=== PATIENT | female | born 1965 | race Caucasian/White ===

== ENCOUNTER 2018-03-30 11:52 | Emergency (ER) | payer BC, OTHER ==
[2018-03-30] MEDS ORDERED: Ondansetron HCl/PF 4 MG/2 ML Vial ONE (12:31)
[2018-03-30 12:43] LABS: #Basophils 0.1 thou/uL (0.0-0.2); #Eosinphils 0.1 thou/uL (0.0-0.7); #Lymphocytes 1.4 thou/uL (1.20-3.40); #Monocytes 0.4 thou/uL (0.11-0.59); #Neutrophils 3.8 thou/uL (1.40-6.50); %Basophils 1.2 % (0.0-1.0); %Eosinophils 1.3 % (0.0-10.0); %Monocytes 6.8 % (0.0-10.0); %Neutrophils 66.6 % (42.0-75.0); Hemoglobin 14.2 g/dL (12.0-16.0); Mean Corpuscular HGB CONC 32.9 g/dL (32.0-36.0); Mean Corpuscular Volume 94.2 fL (78.0-98.0); Mean Platelet Volume 7.4 fL (7.4-10.4); Platelet Count 293 thou/uL (130-400); RBC Distribution Width 12.4 % (11.5-14.5); Red Blood Cell (RBC) Count 4.57 mill/uL (4.20-5.40); White Blood Cell (WBC) Count 5.8 thou/uL (4.8-10.8)
[2018-03-30 13:08] LABS: ALT (SGPT) 20 U/L (8-55); AST (SGOT) 20 U/L (5-34); Albumin 4.6 g/dL (3.5-5.0); Alkaline Phosphatase 81 U/L (40-150); Anion Gap 12 mmol/L (10-20); BUN (Urea Nitrogen) 11 mg/dL (9.8-20.1); Bilirubin, Total 0.7 mg/dL (0.2-1.2); Calc. Creatinine Clearance 0 mL/min (70-130); Calcium 10.6 mg/dL (7.8-10.44); Carbon Dioxide 27 mmol/L (22-29); Chloride 105 mmol/L (98-107); Estimated GFR-MDRD 56; Globulin 3.3 g/dL (2.4-3.5); Glucose 89 mg/dL (70-105); Potassium 4.3 mmol/L (3.5-5.1); Protein, Total 7.9 g/dL (6.0-8.3); Sodium 140 mmol/L (136-145)
== END 2018-03-30 13:47 | disposition home or self-care (01) ==
LOC: ERS 11:52
DX: E86.0 Dehydration (principal); I47.1 Supraventricular tachycardia; F32.9 Major depressive disorder, single episode, unspecified; I49.9 Cardiac arrhythmia, unspecified; Z79.899 Other long term (current) drug therapy
CPT/HCPCS: 80053; 85025; 96361; 96374; J2405

== ENCOUNTER 2018-04-12 10:36 | Observation (INO) | payer BC ==
[2018-04-12 12:45] LABS: Bilirubin Negative (Negative); Blood, Urine Negative (Negative); Clarity CLOUDY (Clear); Glucose, Urine (Dipstick) Negative (Negative); Leukocyte Trace (Negative); Nitrite Negative (Negative); Protein, Urine (Dipstick) Negative (Neg-Trace); Specific Gravity, Urine 1.013 (1.002-1.036); Urobilinogen 0.2 mg/dL (0.2-1.0)
[2018-04-12 12:47] LABS: Bacteria/HPF 2+ HPF (None Seen); WBC/HPF 21-50 HPF (0-3)
[2018-04-12 12:54] LABS: Pathc Cast-AUWi Flag 3.05 (0-2.49)
[2018-04-12 13:05] LABS: Hyaline Casts/LPF 0-3 HYALINE CAST LPF (0-3 Hyaline); Manual Microscopic Reviewed? No Path Casts Seen; RBC/HPF None Seen HPF (0-3)
[2018-04-12 13:18] LABS: #Eosinphils 0.1 thou/uL (0.0-0.7); #Lymphocytes 1.6 thou/uL (1.20-3.40); #Monocytes 0.5 thou/uL (0.11-0.59); %Basophils 0.2 % (0.0-1.0); %Eosinophils 0.8 % (0.0-10.0); %Lymphocytes 19.4 % (21.0-51.0); %Monocytes 5.6 % (0.0-10.0); Hemoglobin 13.7 g/dL (12.0-16.0); Mean Corpuscular HGB CONC 33.5 g/dL (32.0-36.0); Mean Corpuscular Hemoglobin 31.2 pg (27.0-31.0); Mean Platelet Volume 6.9 fL (7.4-10.4); Platelet Count 288 thou/uL (130-400)
[2018-04-12] MEDS ORDERED: cefTRIAXone\\ROCEPHIN 1 GM VIAL ONE (13:27)
[2018-04-12 13:50] LABS: ALT (SGPT) 40 U/L (8-55); AST (SGOT) 32 U/L (5-34); Albumin 4.5 g/dL (3.5-5.0); Alkaline Phosphatase 64 U/L (40-150); Anion Gap 13 mmol/L (10-20); BUN (Urea Nitrogen) 11 mg/dL (9.8-20.1); Bilirubin, Total 0.6 mg/dL (0.2-1.2); CK (CPK) 50 U/L (29-168); Calc. Creatinine Clearance 0 mL/min (70-130); Calcium 9.8 mg/dL (7.8-10.44); Carbon Dioxide 26 mmol/L (22-29); Chloride 105 mmol/L (98-107); Estimated GFR-MDRD 74; Glucose 84 mg/dL (70-105); Lipase 7 U/L (8-78); Protein, Total 7.5 g/dL (6.0-8.3); Sodium 140 mmol/L (136-145)
--- NOTE | 2018-04-12 13:59 | CT ---
CT OF THE BRAIN WITHOUT CONTRAST: 04/12/18 COMPARISON: None. HISTORY: Blacking out episodes and altered mental status. TECHNIQUE: Multiple contiguous axial images were obtained in a CT of the brain without contrast. FINDINGS: The brain is normal in morphology and attenuation without focal lesions or confluent areas of infarct ion. There is no evidence of hydrocephalus, intracranial hemorrhage, or extra-axial fluid collection. The calvarium and overlying soft tissues are unremarkable. The visualized paranasal sinuses and masto id air cells are well aerated. IMPRESSION: No evidence of acute intracranial abnormality. POS: [facility]
[2018-04-12 14:08] LABS: CKMB 0.7 ng/mL (0-6.6); Troponin I Less than 0.010 ng/mL (< 0.028)
[2018-04-12 15:49] VITALS: BMI 39.6
[2018-04-12] MEDS ORDERED: Ondansetron ODT 4 MG TAB PO PRN (17:38)
[2018-04-12] MEDS ORDERED: Acetaminophen 325 MG TAB PO PRN (17:38)
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
[2018-04-13 04:53] LABS: #Eosinphils 0.1 thou/uL (0.0-0.7); #Lymphocytes 1.7 thou/uL (1.20-3.40); #Monocytes 0.5 thou/uL (0.11-0.59); #Neutrophils 5.2 thou/uL (1.40-6.50); %Basophils 0.5 % (0.0-1.0); %Eosinophils 1.2 % (0.0-10.0); %Monocytes 7.1 % (0.0-10.0); %Neutrophils 69.2 % (42.0-75.0); Hemoglobin 13.1 g/dL (12.0-16.0); Mean Corpuscular HGB CONC 33.6 g/dL (32.0-36.0); Mean Corpuscular Hemoglobin 31.4 pg (27.0-31.0); Mean Corpuscular Volume 93.4 fL (78.0-98.0); Mean Platelet Volume 7.2 fL (7.4-10.4); Platelet Count 272 thou/uL (130-400); RBC Distribution Width 12.9 % (11.5-14.5); Red Blood Cell (RBC) Count 4.17 mill/uL (4.20-5.40); White Blood Cell (WBC) Count 7.6 thou/uL (4.8-10.8)
[2018-04-13 05:19] LABS: Anion Gap 12 mmol/L (10-20); BUN (Urea Nitrogen) 10 mg/dL (9.8-20.1); Calc. Creatinine Clearance 145 mL/min (70-130); Calcium 9.4 mg/dL (7.8-10.44); Carbon Dioxide 27 mmol/L (22-29); Chloride 106 mmol/L (98-107); Estimated GFR-MDRD 77; Glucose 95 mg/dL (70-105); Potassium 4.1 mmol/L (3.5-5.1); Sodium 141 mmol/L (136-145)
[2018-04-13] MEDS ORDERED: Enoxaparin Sodium 40 MG/0.4 ML SYRINGE SC SCH (09:00)
--- NOTE | 2018-04-13 09:48 | MRI ---
MRI JANEY WITHOUT CONTRAST: HISTORY: Altered mental status and syncope. FINDINGS: Correlation is made with the previous day's CT scan. No restricted diffusion is seen. No evidence of infarct, hemorrhage, midline shift, or abnormal extr aaxial fluid collections is noted. The ventricular size is normal and the basilar cisterns patent. The visualized paranasal sinuses are well aerated. There is a small amount of fluid in the right mas toid air cells. No tonsillar herniation is seen. There are a few foci of T2 prolongation in the per iventricular white matter consistent with mild chronic small-vessel ischemic disease. IMPRESSION: No evidence of acute intracranial process. POS: [facility]
[2018-04-13] MEDS ORDERED: cefTRIAXone\\ROCEPHIN 1 GM in Sodium Chloride 0.9% 100 ML IVPB SCH (13:00)
--- NOTE | 2018-04-13 14:20 | EEG ---
Referring Physician: KARL CONNOR EEG # [id number] TEST TYPE: ROUTINE PORTABLE INAPTIENT REPORT: AN EEG USING THE INTERNATIONAL TEN-TWENTY SYSTEM OF ELECTRODE PLACEMENT WAS PERFORMED. The waking background is a 10 hertz alpha frequency. The patient remained awake throughout the study. Hyperventilation and photic stimulation were unremarkable. No epileptiform features were seen. IMPRESSION: THIS IS A NORMAL AWAKE EEG. Food And Beverage Director: ANDREEA Tobacco Dipper: KOLTON.NAVIN GUSMAN
[2018-04-13 15:54] VITALS: TEMP 97.4
[2018-04-13 16:07] VITALS: BP 138/92
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
--- NOTE | 2018-04-26 16:58 | EKG ---
Test Reason : Blood Pressure : / mmHG Vent. Rate : 072 BPM Atrial Rate : 072 BPM P-R Int : 132 ms QRS Dur : 078 ms QT Int : 400 ms P-R-T Axes : 000 -23 -23 degrees QTc Int : 438 ms Normal sinus rhythm Low voltage QRS Borderline ECG Confirmed by MERCY OLMSTEAD, KARL ([id number]), deputy editor in chief TRAE GODWIN ([id number]) on 04/26/2018 4:58:02 PM Referred By: Confirmed By:KARL MADRID MD
== END 2018-04-13 18:10 | disposition home or self-care (01) ==
LOC: ERS 10:36 → 2SE 15:07
PROVIDERS: ADMIT Internal Medicine; ATTEND Internal Medicine
DX: R41.3 Other amnesia (principal); F41.9 Anxiety disorder, unspecified; E66.01 Morbid (severe) obesity due to excess calories; E78.5 Hyperlipidemia, unspecified; V89.2XXA Person injured in unspecified motor-vehicle accident, traffic, initial encounter; Z79.899 Other long term (current) drug therapy; Z68.39 Body mass index [BMI] 39.0-39.9, adult
CPT/HCPCS: 36415; 70450; 70551; 80048; 80053; 81003; 81015; 82140; 82550; 82553; 83690; 83880; 84443; 84484; 85025; 87086; 93005; 95816; 95819; 96361; 96365; 96372; G0378; J0696; J1650; J7050

== ENCOUNTER 2019-01-07 09:20 | Outpatient (CLI) | payer BC ==
--- NOTE | 2019-01-07 14:12 | RAD ---
EXAM: XR UGI Air Contrast PROVIDED CLINICAL HISTORY: Morbid obesity. Patient with history of prior hiatal hernia repair. This examination is being perform ed prior to gastric bypass surgery. COMPARISON: None Fluoroscopy: Fluoroscopy time-1.7 minutes, dose-38.653 Gy centimeter squared FINDINGS: The esophagus demonstrates normal esophageal peristalsis and demonstrates a normal appearance. No muc osal irregularity or narrowing is seen involving the esophagus. There is however narrowing seen in the region of the GE junction likely attributable to patient's history of prior fundoplication proced ure. The stomach was not completely distended but does demonstrate a normal appearance. The duodenal bulb, duodenum, and limited visualized most proximal small bowel demonstrate a normal appear ance. Surgical clips overlie the right upper quadrant. Degenerative changes are seen in the spine. IMPRESSION: 1. Postsurgical changes related to patient's history of prior fundoplication procedure. No significan t gastroesophageal reflux was appreciated during this exam.
== END 2019-01-07 09:21 | disposition home or self-care (01) ==
LOC: RAD 09:20
PROVIDERS: ATTEND Specialist
DX: E66.01 Morbid (severe) obesity due to excess calories (principal); Z98.890 Other specified postprocedural states
CPT/HCPCS: 74247

== ENCOUNTER 2019-01-13 13:13 | Outpatient (CLI) | payer OTHER, SELFPAY | END 2019-01-13 13:14 | disposition home or self-care (01) | LOC: DTY/OP 13:13 | PROVIDERS: ATTEND Specialist | DX: E66.01 Morbid (severe) obesity due to excess calories (principal) | CPT/HCPCS: 97802 ==

== ENCOUNTER 2019-02-15 13:07 | Outpatient (CLI) | payer BC ==
--- NOTE | 2019-02-15 16:44 | MMO ---
Bilateral MAMMO Bilat Screen [facility]. CLINICAL HISTORY: Patient is 53 years old and is seen for screening. The patient has no family history of breast cancer. The patient has no personal history of cancer. VIEWS: The views performed were: bilateral craniocaudal with tomosynthesis; bilateral mediolateral oblique with tomosynthesis; and right mediolateral oblique. FILMS COMPARED: The present examination has been compared to prior imaging studies performed at [facility] on 03/11/2012, 03/11/2013, 07/06/2014 and 04/25/2016. MAMMOGRAM FINDINGS: There are scattered fibroglandular densities. There are no suspicious masses, suspicious calcifications, or new areas of architectural distortion. IMPRESSION: THERE IS NO MAMMOGRAPHIC EVIDENCE OF MALIGNANCY. A ROUTINE FOLLOW-UP MAMMOGRAM IN 1 YEAR IS RECOMMENDED. THE RESULTS OF THIS EXAM WERE SENT TO THE PATIENT. ACR BI-RADS Category 1 - Negative MAMMOGRAPHY NOTE: 1. A negative mammogram report should not delay a biopsy if a dominant of clinically suspicious mass is present. 2. Approximately 10% to 15% of breast cancers are not detected by mammography. 3. Adenosis and dense breasts may obscure an underlying neoplasm. Reported by: SVETA HINES MD Electonically Signed: [id number]
== END 2019-02-15 13:08 | disposition home or self-care (01) ==
LOC: BICMAMMO 13:07
PROVIDERS: ATTEND Family Medicine
DX: Z12.31 Encounter for screening mammogram for malignant neoplasm of breast (principal)
CPT/HCPCS: 77063; 77067

== ENCOUNTER 2019-03-16 12:07 | Inpatient (IN) | payer BC ==
[2019-05-05] MEDS ORDERED: Ketorolac Tromethamine 30 MG/ML VIAL ONE ×2 (06:43→11:44)
[2019-05-05] MEDS ORDERED: cefOXitin 2 GM VIAL ONE (06:44)
[2019-05-05] MEDS ORDERED: Sodium Chloride 0.9% 100 ML ONE (06:44)
[2019-05-05] MEDS ORDERED: Bupivacaine 0.25% HCL 30 ML VIAL ONE (06:59)
[2019-05-05] MEDS ORDERED: Lidocaine 1% w/Epinephrine 1:100K 20 ML VIAL ONE (06:59)
[2019-05-05] MEDS ORDERED: Midazolam HCl 2 mg/2 ml Vial ONE (07:09)
[2019-05-05] MEDS ORDERED: Fentanyl 250 MCG/5 ML VIAL ONE (07:09)
[2019-05-05] MEDS ORDERED: Rocuronium Bromide 10 MG/ML (10ML VIAL) ONE (10:54)
[2019-05-05] MEDS ORDERED: Ondansetron PF 4 MG/2 ML Vial ONE ×2 (10:54→11:53)
[2019-05-05] MEDS ORDERED: PROPOFOL 200 MG/20 ML VIAL ONE (10:54)
[2019-05-05] MEDS ORDERED: Glycopyrrolate 0.2 MG/ML 5 ML SYRINGE ONE (10:54)
[2019-05-05] MEDS ORDERED: Ondansetron PF 4 MG/2 ML Vial IVP PRN (11:15)
[2019-05-05] MEDS ORDERED: Morphine 2 MG/ML SYRINGE SLOW IVP PRN (11:15)
[2019-05-05] MEDS ORDERED: diphenhydrAMINE 50 MG/ML VIAL IVP PRN (11:15)
[2019-05-05] MEDS ORDERED: Dextrose 5% in Water 1,000 ML IV PRN (11:15)
[2019-05-05] MEDS ORDERED: Dextrose 50 % In Water 50 ML SYRINGE IV PRN (11:15)
[2019-05-05] MEDS ORDERED: hydrALAZINE 20 MG/ML VIAL SLOW IVP PRN (11:15)
[2019-05-05] MEDS ORDERED: Promethazine HCl 25 MG/ML VIAL ONE (11:22)
[2019-05-05] MEDS ORDERED: Fentanyl 100 MCG/2 ML VIAL ONE ×2 (11:35→12:32)
[2019-05-05] MEDS ORDERED: Ondansetron HCl/PF 4 MG/2 ML Vial IVP PRN (11:42)
[2019-05-05] MEDS ORDERED: Promethazine HCl 25 MG/ML VIAL IM PRN (11:42)
[2019-05-05] MEDS ORDERED: Promethazine HCl 25 MG/ML VIAL SLOW IVP PRN (11:42)
[2019-05-05] MEDS ORDERED: Sodium Chloride 0.9% (PF) 10 ML VIAL FS PRN (12:01)
[2019-05-05] MEDS: Acetaminophen 1,000 MG in Premix Bag 1 BAG IVPB SCH ×3 (12:31→23:04)
[2019-05-05] MEDS: Ketorolac Tromethamine 30 MG/ML VIAL IVP SCH ×3 (12:31→23:17)
[2019-05-05 13:13] VITALS: BMI 36.3
[2019-05-05] MEDS: Promethazine HCl 25 MG/ML VIAL IM PRN ×2 (14:28→17:19)
[2019-05-05] MEDS: D5 1/2 NS w/20 mEq KCL 1,000 ML IV SCH ×2 (14:28→22:34)
[2019-05-05] MEDS: Morphine 4 MG/ML VIAL SLOW IVP PRN ×2 (16:17→18:38)
[2019-05-05] MEDS ORDERED: Enoxaparin Sodium 40 MG/0.4 ML SYRINGE SC SCH (21:00)
[2019-05-05] MEDS: Hydrocodone-Acetamin 15 ML UDCUP PO PRN (22:31)
[2019-05-06] MEDS: Hydrocodone-Acetamin 15 ML UDCUP PO PRN ×2 (04:05→09:26)
[2019-05-06] MEDS: D5 1/2 NS w/20 mEq KCL 1,000 ML IV SCH (04:06)
[2019-05-06 05:32] LABS: #Lymphocytes 0.9 thou/uL (1.20-3.40); #Neutrophils 10.1 thou/uL (1.40-6.50); %Basophils 0.1 % (0.0-1.0); %Lymphocytes 7.8 % (21.0-51.0); %Monocytes 8.5 % (0.0-10.0); %Neutrophils 83.5 % (42.0-75.0); Hemoglobin 11.7 g/dL (12.0-16.0); Mean Corpuscular HGB CONC 34.4 g/dL (32.0-36.0); Mean Corpuscular Volume 92.9 fL (78.0-98.0); Mean Platelet Volume 8.2 fL (7.4-10.4); Platelet Count 215 thou/uL (130-400); RBC Distribution Width 12.1 % (11.5-14.5); Red Blood Cell (RBC) Count 3.66 mill/uL (4.20-5.40); White Blood Cell (WBC) Count 12.1 thou/uL (4.8-10.8)
[2019-05-06] MEDS: Ketorolac Tromethamine 30 MG/ML VIAL IVP SCH (05:43)
[2019-05-06] MEDS: Acetaminophen 1,000 MG in Premix Bag 1 BAG IVPB SCH (05:44)
[2019-05-06 05:49] LABS: Anion Gap 9 mmol/L (10-20); BUN (Urea Nitrogen) 10 mg/dL (9.8-20.1); Calc. Creatinine Clearance 153 mL/min (70-130); Calcium 8.8 mg/dL (7.8-10.44); Carbon Dioxide 23 mmol/L (22-29); Chloride 110 mmol/L (98-107); Estimated GFR-MDRD Greater than 90; Glucose 128 mg/dL (70-105); Potassium 4.3 mmol/L (3.5-5.1); Sodium 138 mmol/L (136-145)
[2019-05-06 07:38] VITALS: BP 128/82; TEMP 98.4
[2019-05-06] MEDS ORDERED: Pantoprazole 40 MG VIAL IVP SCH (09:00)
--- NOTE | 2019-05-07 21:12 | OP ---
DATE OF PROCEDURE: 05/05/2019 PREOPERATIVE DIAGNOSES: Gastroesophageal reflux disease, history of Twila fundoplication, and morbid obesity. POSTOPERATIVE DIAGNOSES: Gastroesophageal reflux disease, history of Twila fundoplication, and morbid obesity. OPERATION PERFORMED: Takedown of previous Twila fundoplication (a lengthy meticulous procedure), partial gastrectomy (removal of the upper portion of the bypassed/retained stomach), and laparoscopic Terry-en-Y gastric bypass. ANESTHESIA: General endotracheal. COMBINING MACHINE OPERATOR: Cinthia Monterroso MD. INDICATIONS: Patient is a 54-year-old white female. She has a long history of obesity. Several years ago when she presented, she had a history of severe gastroesophageal reflux disease. At that time, I had recommended a laparoscopic gastric bypass. Unfortunately, this procedure was not covered by her insurance and as she was severely symptomatic, she elected to proceed with Twila fundoplication. Fortunately, she had an excellent result from this procedure and has been very happy with these results. Unfortunately, her morbid obesity persists and at this time, she had the ability and desire to proceed with a laparoscopic gastric bypass in order to treat both her reflux and her obesity. She understands the significant increased risk of this procedure. DESCRIPTION OF OPERATION: Informed consent was obtained, patient was taken to the operating room, where general endotracheal anesthesia was obtained, the patient in supine position. Abdomen was prepped with ChloraPrep and draped in a sterile fashion. Local anesthetic was infiltrated using a mixture of Marcaine and lidocaine with epinephrine. A 5 mm supraumbilical incision was created through which a Veress needle was passed in the peritoneal cavity. Pneumoperitoneum was established with carbon dioxide up to pressure of 15 mmHg. A 5 mm trocar port was established using the same incision and laparoscopic camera was passed this port. Under direct vision, four additional ports were placed including bilateral subcostal 5 mm ports, a left paramedian 15 mm port, and a right paramedian 12 mm port. Attention was turned first to the omentum. There were no adhesions to the anterior abdominal wall anywhere in the abdomen. The omentum was nonadherent within the lower abdomen. It was reflected into the upper abdomen and it was split in the midline up to the transverse colon using LigaSure. The ligament of Treitz was identified and about 40 cm distal to this, the small bowel was divided with a single firing of the white load of the [place] stapler. The distal segment was devascularized for a 5 cm length. I then tracked the small bowel 100 cm distally and at this location, I created a jejunojejunostomy between the biliary limb and the Terry limb using a single fire of the 60 mm white load stapler. The common enterotomy was closed with a transverse fire of the same stapler. The mesenteric defect was repaired with 2 interrupted [id number] sutures of 3-0 Vicryl. Patient was then placed into extreme reverse Trendelenburg position. The inferior edge of the liver was nonadherent and I was able to elevate this using a Janie retractor. There were adhesions between the superior aspect of the left lobe of the liver and the stomach as well as the hiatus. Using a combination of monopolar electrocautery, LigaSure dissection and division, and blunt dissection, I began a lengthy dissection in order to elevate the liver off the underlying stomach and hiatus. I meticulously dissected the left and right cecilia of the hiatus. I then turned my attention anteriorly, where I was able to identify the wrap and carefully divided the right from the left side of the anterior wrap. The Ethibond sutures used in the prior closure were identified. All of this was performed without any injury to esophagus or stomach. Meticulous hemostasis was maintained during the course of the dissection. I then was able to continue to dissect the wrap from the right side of the esophagus and stomach as well as away from the hiatus. I identified a retroesophageal window. I was able to pass a Colton drain through this. There was a more than adequate length of the esophagus intraabdominal and the hiatus was still nicely approximated to a normal caliber. Eventually, I was able to reduce the wrap from the right side underneath the esophagus to the left side. I then elevated the stomach and finished dissecting the posterior aspect until I had completely restored the normal gastric anatomy. The upper part of the fundus had of course been devascularized along the greater curvature and had been dissected extensively in order to take down the wrap. Although there was no definite injury and no bleeding, there was certainly potential for ischemia due to the lack of blood supply to the fundus. I therefore decided to remove the entire fundus of the stomach down to the prior level of vascular mobilization. I turned my attention to the lesser curve of the stomach where 5 cm from the gastroesophageal junction, I dissected into the lesser sac. I then fired a transverse firing of the blue load of the [place] stapler. A gastrotomy was created inferior to the staple line through which the anvil of the 25 mm EEA stapler was advanced into the upper pouch and utilizing the 5 mm band passer, the EEA stapler was eventually brought out through the anterior aspect of the stomach just superior to the staple line. The gastrotomy was closed with two firings of the blue load of the stapler. The gastric pouch construction was completed with two firings of the stapler up to and just adjacent to the angle of His. I then performed a partial gastrectomy with two firings of the blue load of the [place] stapler in order to remove the ischemic fundus and superior aspect of the retained portion of the stomach. This was removed through the 15-mm port site. The 25 mm EEA stapler was then advanced through the 15-mm port site to the abdominal cavity. An enterotomy was created in the devascularized segment of the Terry limb and the stapler was advanced up to the viable segment of the small bowel, where the spike was advanced through the antimesenteric side of the small bowel. This spike was secured to the anvil in the gastric pouch. The two segments were approximated and anastomosed by firing the stapler. The donuts were inspected and found to be intact. The devascularized segment was removed along with the enterotomy with a single firing of the [place] stapler. The gastrojejunostomy staple line was then buttressed with 3 interrupted sutures of 3-0 Vicryl. An orogastric tube was then advanced through the gastric pouch and through the anastomosis under vision. An air insufflation test was performed with the anastomosis under water with no evidence of air leak and excellent insufflation. The fascial defect at the 15-mm port site was closed with 0 Vicryl suture using a GraNee needle. A single suture was placed at the 12 mm port site also using the GraNee needle. The Janie retractor was removed. All ports and instruments were removed under direct vision. Pneumoperitoneum was carefully evacuated. 0.25% Marcaine with epinephrine was infiltrated at each port site. Skin edges approximated with 4-0 Monocryl subcuticular suture. Dermabond was placed externally. There were no complications. Blood loss was minimal, estimated at less than 50 mL. Patient tolerated the procedure well, was taken to recovery room in stable condition. Of note, this operation took substantially longer than a typical gastric bypass because of the fundoplication takedown and this took an estimated 2.5 hours to complete. Job ID: [id number]
== END 2019-05-06 10:05 | disposition home or self-care (01) | DRG 621 ==
LOC: SURG A 05-05 06:14
PROVIDERS: ADMIT Specialist; ATTEND Specialist
PROC: 0D164ZA Bypass Stomach to Jejunum, Percutaneous Endoscopic Approach (ICD-10-PCS; principal; 2019-05-05)
PROC: 0DB64ZZ Excision of Stomach, Percutaneous Endoscopic Approach (ICD-10-PCS; 2019-05-05)
PROC: 0DQ44ZZ Repair Esophagogastric Junction, Percutaneous Endoscopic Approach (ICD-10-PCS; 2019-05-05)
DX: E66.01 Morbid (severe) obesity due to excess calories (principal); J30.2 Other seasonal allergic rhinitis; F32.9 Major depressive disorder, single episode, unspecified; K21.9 Gastro-esophageal reflux disease without esophagitis; I10 Essential (primary) hypertension; Z68.36 Body mass index [BMI] 36.0-36.9, adult; Z79.899 Other long term (current) drug therapy
CPT/HCPCS: 36415; 80048; 85025; 88307; 88312; 94760; C9113; J0131; J0694; J1200; J1650; J1885; J2250; J2270; J2405; J2550; J2704; J3010; J3490; S0020

== ENCOUNTER 2019-04-22 07:11 | Outpatient (CLI) | payer BC ==
[2019-04-22 09:22] VITALS: BMI 36.3
[2019-04-22 10:21] LABS: #Eosinphils 0.1 thou/uL (0.0-0.7); #Lymphocytes 1.4 thou/uL (1.20-3.40); #Monocytes 0.5 thou/uL (0.11-0.59); #Neutrophils 4.2 thou/uL (1.40-6.50); %Basophils 0.5 % (0.0-1.0); %Eosinophils 1.3 % (0.0-10.0); %Lymphocytes 22.4 % (21.0-51.0); %Monocytes 7.8 % (0.0-10.0); %Neutrophils 68.1 % (42.0-75.0); Hemoglobin 13.8 g/dL (12.0-16.0); Mean Corpuscular HGB CONC 33.2 g/dL (32.0-36.0); Mean Corpuscular Hemoglobin 31.7 pg (27.0-31.0); Mean Corpuscular Volume 95.7 fL (78.0-98.0); Mean Platelet Volume 7.9 fL (7.4-10.4); Platelet Count 230 thou/uL (130-400); RBC Distribution Width 12.3 % (11.5-14.5); Red Blood Cell (RBC) Count 4.34 mill/uL (4.20-5.40); White Blood Cell (WBC) Count 6.2 thou/uL (4.8-10.8)
[2019-04-22 10:27] LABS: Hemoglobin A1c 5.1 % (4.0-6.0)
[2019-04-22 10:44] LABS: Anion Gap 13 mmol/L (10-20); BUN (Urea Nitrogen) 19 mg/dL (9.8-20.1); Calc. Creatinine Clearance 119 mL/min (70-130); Calcium 9.8 mg/dL (7.8-10.44); Carbon Dioxide 24 mmol/L (22-29); Chloride 110 mmol/L (98-107); Estimated GFR-MDRD 69; Glucose 86 mg/dL (70-105); Potassium 4.5 mmol/L (3.5-5.1); Sodium 142 mmol/L (136-145)
== END 2019-04-22 07:12 | disposition home or self-care (01) ==
LOC: LABBT 07:11
PROVIDERS: ATTEND Specialist
DX: Z01.812 Encounter for preprocedural laboratory examination (principal); E66.01 Morbid (severe) obesity due to excess calories
CPT/HCPCS: 80048; 83036; 85025

== ENCOUNTER 2019-07-27 15:44 | Emergency (ER) | payer BC ==
[2019-07-27 16:24] LABS: #Eosinphils 0.1 thou/uL (0.0-0.7); #Lymphocytes 2.1 thou/uL (1.20-3.40); #Monocytes 0.6 thou/uL (0.11-0.59); #Neutrophils 4.5 thou/uL (1.40-6.50); %Basophils 0.6 % (0.0-1.0); %Eosinophils 1.4 % (0.0-10.0); %Lymphocytes 28.9 % (21.0-51.0); %Monocytes 7.6 % (0.0-10.0); %Neutrophils 61.6 % (42.0-75.0); Hemoglobin 13.7 g/dL (12.0-16.0); Mean Corpuscular HGB CONC 34.3 g/dL (32.0-36.0); Mean Corpuscular Hemoglobin 32.4 pg (27.0-31.0); Mean Corpuscular Volume 94.4 fL (78.0-98.0); Mean Platelet Volume 8.4 fL (7.4-10.4); Platelet Count 270 thou/uL (130-400); RBC Distribution Width 12.6 % (11.5-14.5); Red Blood Cell (RBC) Count 4.25 mill/uL (4.20-5.40); White Blood Cell (WBC) Count 7.3 thou/uL (4.8-10.8)
[2019-07-27 16:46] LABS: Lactic Acid 0.9 mmol/L (0.5-2.2)
[2019-07-27 16:52] LABS: ALT (SGPT) 12 U/L (8-55); AST (SGOT) 15 U/L (5-34); Albumin 4.3 g/dL (3.5-5.0); Alkaline Phosphatase 102 U/L (40-110); Anion Gap 12 mmol/L (10-20); BUN (Urea Nitrogen) 15 mg/dL (9.8-20.1); Bilirubin, Total 0.5 mg/dL (0.2-1.2); Calc. Creatinine Clearance 0 mL/min (70-130); Calcium 9.4 mg/dL (7.8-10.44); Carbon Dioxide 28 mmol/L (22-29); Chloride 105 mmol/L (98-107); Estimated GFR-MDRD 87; Globulin 2.8 g/dL (2.4-3.5); Glucose 80 mg/dL (70-105); Lipase 11 U/L (8-78); Potassium 4.1 mmol/L (3.5-5.1); Protein, Total 7.1 g/dL (6.0-8.3); Sodium 141 mmol/L (136-145)
[2019-07-27 17:11] LABS: Bilirubin Negative (Negative); Blood, Urine Negative (Negative); Clarity Clear (Clear); Glucose, Urine (Dipstick) Normal (Negative); Leukocyte Negative Leu/uL (Negative); Nitrite Negative (Negative); Protein, Urine (Dipstick) Negative (Neg-Trace); Urobilinogen Normal mg/dL (Less than 2)
== END 2019-07-27 20:35 | disposition home or self-care (01) ==
LOC: ERS 15:44
DX: E86.0 Dehydration (principal); I47.1 Supraventricular tachycardia; F32.9 Major depressive disorder, single episode, unspecified; Z79.899 Other long term (current) drug therapy
CPT/HCPCS: 36415; 80053; 81003; 82150; 83605; 83690; 85025; 96361; 96365; J3411

== ENCOUNTER 2019-08-16 08:38 | Day surgery (SDC) | payer BC ==
[2019-08-16] MEDS ORDERED: Sodium Chloride 0.9% 200 ML ONE (09:22)
[2019-08-16] MEDS ORDERED: Lactated Ringer's 1,000 ML IV SCH (09:30)
[2019-08-16] MEDS ORDERED: Sodium Chloride 0.9% 1,000 ML IV SCH (09:30)
[2019-08-16 12:35] VITALS: BP 143/73; TEMP 97.7
== END 2019-08-16 12:36 | disposition home or self-care (01) ==
LOC: ONC/OP 08:38
PROVIDERS: ATTEND Specialist
DX: E86.0 Dehydration (principal)
CPT/HCPCS: 96360; 96361; J3490

== ENCOUNTER 2019-10-29 10:21 | Emergency (ER) | payer BC, OTHER ==
[2019-10-30 16:40] LABS: SARS-CoV-2 MS2 Positive; SARS-CoV-2 N Gene Negative; SARS-CoV-2 S Gene Negative; SARS-CoV-2 orf1ab Negative
== END 2019-10-29 10:47 | disposition home or self-care (01) ==
LOC: ERS 10:21
DX: J02.9 Acute pharyngitis, unspecified (principal); Z20.828 Contact with and (suspected) exposure to other viral communicable diseases; I47.1 Supraventricular tachycardia; F32.9 Major depressive disorder, single episode, unspecified; E28.2 Polycystic ovarian syndrome
CPT/HCPCS: 87635; 99283; U0003

== ENCOUNTER 2019-11-02 11:02 | Inpatient (IN) | payer BC, OTHER ==
[~2019-11-02 11:02] MED LIST: Iopamidol 370 76% 50 ML VIAL FS ONE; Iopamidol-370 76% 500 ML 1 ML ONE
[2019-11-02 12:05] LABS: #Eosinphils 0.1 thou/uL (0.0-0.7); #Lymphocytes 1.7 thou/uL (1.20-3.40); #Monocytes 0.9 thou/uL (0.11-0.59); #Neutrophils 7.2 thou/uL (1.40-6.50); %Basophils 0.5 % (0.0-1.0); %Eosinophils 0.7 % (0.0-10.0); %Lymphocytes 17.3 % (21.0-51.0); %Monocytes 9.3 % (0.0-10.0); %Neutrophils 72.2 % (42.0-75.0); Hemoglobin 12.9 g/dL (12.0-16.0); Mean Corpuscular HGB CONC 33.7 g/dL (32.0-36.0); Mean Corpuscular Volume 94.9 fL (78.0-98.0); Mean Platelet Volume 7.6 fL (7.4-10.4); Platelet Count 290 thou/uL (130-400); RBC Distribution Width 11.8 % (11.5-14.5); Red Blood Cell (RBC) Count 4.04 mill/uL (4.20-5.40)
[2019-11-02 12:09] LABS: Bilirubin Negative (Negative); Blood, Urine Negative (Negative); Clarity Turbid (Clear); Glucose, Urine (Dipstick) Normal (Negative); Leukocyte Negative Leu/uL (Negative); Nitrite Negative (Negative); Protein, Urine (Dipstick) 20 mg/dL (Neg-Trace); Urobilinogen Normal mg/dL (Less than 2)
[2019-11-02] MEDS ORDERED: Thiamine HCl 100 MG, Admixture Fee 1 EACH in Sodium Chloride 0.9% 50 ML IVPB SCH (12:30)
[2019-11-02 12:32] LABS: ALT (SGPT) 7 U/L (8-55); AST (SGOT) 13 U/L (5-34); Albumin 3.9 g/dL (3.5-5.0); Alkaline Phosphatase 102 U/L (40-110); Anion Gap 14 mmol/L (10-20); BUN (Urea Nitrogen) 10 mg/dL (9.8-20.1); Bilirubin, Total 0.6 mg/dL (0.2-1.2); Calc. Creatinine Clearance 0 mL/min (70-130); Calcium 9.5 mg/dL (7.8-10.44); Carbon Dioxide 29 mmol/L (22-29); Chloride 101 mmol/L (98-107); Estimated GFR-MDRD 85; Globulin 3.4 g/dL (2.4-3.5); Glucose 92 mg/dL (70-105); Potassium 3.8 mmol/L (3.5-5.1); Protein, Total 7.3 g/dL (6.0-8.3); Sodium 140 mmol/L (136-145)
[2019-11-02 12:33] LABS: Lipase Less than 4 U/L (8-78)
[2019-11-02] MEDS ORDERED: Ondansetron PF 4 MG/2 ML Vial ONE ×2 (13:52→16:20)
[2019-11-02] MEDS ORDERED: Morphine 4 MG/ML VIAL ONE (13:52)
--- NOTE | 2019-11-02 15:13 | CT ---
CT ABDOMEN AND PELVIS WITH IV CONTRAST 11/02/2019 CLINICAL INFORMATION: Abdominal pain. Patient has history of prior cholecystectomy, hernia repair, and history of gastric b ypass procedure. COMPARISON: None. Technique: Multiple contiguous axial CT images are obtained through the abdomen and pelvis with IV contrast. Cor onal reformatted images are provided. FINDINGS: Lower Chest: Lung bases are clear. Vessels: Abdominal aorta is normal in caliber without evidence of an aortic dissection. Abdomen: Portal vein:Patent Gallbladder: Surgically absent Liver: Mild intrahepatic biliary duct dilatation likely related to reservoir effect. Few very tiny morales bcentimeter too small to characterize hypodense lesions are seen in the left hepatic lobe. Spleen: within normal limits. Pancreas: within normal limits. Adrenals: within normal limits. Kidneys: Low-density area inferior pole left kidney which is thought to be related to a parapelvic re nal cyst as opposed to dilatation of the calyx and renal pelvis. The kidneys otherwise demonstrate a normal CT appearance. Bowel: Postoperative changes of the stomach findings likely to gastric bypass procedure. Appendix: There is cecal apical thickening, and the visualized portions of the appendix are dilated w ith appendicolith noted in place. The appendix at the level of the appendicolith measures 2.4 cm, and there is adjacent inflammatory stranding extending into the right paracolic gutter and into the r ight pelvis. Tiny amount free fluid is seen in the pelvis. Peritoneum: No ascites or free air; no fluid collection. Mesentery and Retroperitoneum: No enlarged mesenteric or retroperitoneal lymph nodes. Abdominal Wall: within normal limits. Pelvis: Reproductive Organs: No pelvic masses. Pelvis within normal limits. Bladder: within normal limits. Bones: Degenerative changes are seen in the spine. IMPRESSION: 1. Acute appendicitis with prominent cecal apical thickening as well as prominent adjacent inflammato ry changes. No fluid collection is seen to suggest an abscess 2. Tiny amount of free fluid in the pelvis. 3. Postoperative changes abdomen as described above. 4. Above findings discussed with Dr. Sandy in the emergency department on 11/02/2019 at 1509 hours.
[2019-11-02] MEDS ORDERED: Piperacillin/Tazobactam 3.375 GM VIAL ONE (15:36)
[2019-11-02] MEDS ORDERED: Rocuronium Bromide 10 MG/ML (10ML VIAL) ONE (16:20)
[2019-11-02] MEDS ORDERED: Dexamethasone 20 MG/5 ML VIAL ONE (16:20)
[2019-11-02] MEDS ORDERED: Ketorolac Tromethamine 30 MG/ML VIAL ONE (16:20)
[2019-11-02] MEDS ORDERED: PROPOFOL 200 MG/20 ML VIAL ONE (16:20)
[2019-11-02] MEDS ORDERED: Lidocaine 1% PF 5 ML VIAL ONE (16:20)
[2019-11-02] MEDS ORDERED: Succinylcholine Chloride 20 MG/ML 10 ml SYRINGE FS ONE (16:20)
[2019-11-02] MEDS ORDERED: Glycopyrrolate 0.2 MG/ML 5 ML SYRINGE ONE (16:20)
[2019-11-02] MEDS ORDERED: Bupivacaine 0.25% HCL 30 ML VIAL ONE (17:26)
[2019-11-02] MEDS ORDERED: Lidocaine 1% w/Epinephrine 1:100K 20 ML VIAL ONE (17:26)
[2019-11-02] MEDS ORDERED: Fentanyl 100 MCG/2 ML VIAL ONE ×3 (17:38→20:18)
[2019-11-02] MEDS ORDERED: Lidocaine 2% Jelly 5 ML TUBE ONE (17:38)
[2019-11-02] MEDS ORDERED: Promethazine HCl 25 MG/ML VIAL IM PRN ×2 (19:33→20:51)
[2019-11-02] MEDS ORDERED: Ondansetron HCl/PF 4 MG/2 ML Vial IVP PRN (19:33)
[2019-11-02] MEDS ORDERED: Promethazine HCl 25 MG/ML VIAL SLOW IVP PRN (19:33)
[2019-11-02] MEDS ORDERED: hydrALAZINE 20 MG/ML VIAL SLOW IVP PRN (20:51)
[2019-11-02] MEDS ORDERED: Dextrose 50% Abboject 50 ML SYRINGE SLOW IVP PRN (20:51)
[2019-11-02] MEDS ORDERED: Dextrose 5% in Water 1,000 ML IV PRN (20:51)
[2019-11-02] MEDS: Famotidine/PF 20 mg/2ml Vial SLOW IVP SCH (21:01)
[2019-11-02] MEDS: Ondansetron PF 4 MG/2 ML Vial IVP PRN (21:01)
[2019-11-02] MEDS: Famotidine 20 MG TAB PO SCH (21:02)
[2019-11-02] MEDS: D5 1/2 NS w/20 mEq KCL 1,000 ML IV SCH (21:02)
[2019-11-02 21:43] VITALS: BMI 30.5
[2019-11-02] MEDS: Piperacillin/Tazobactam 3.375 GM in Sodium Chloride 0.9% 100 ML IVPB SCH (23:35)
[2019-11-02] MEDS: Ketorolac Tromethamine 30 MG/ML VIAL IVP SCH (23:35)
[2019-11-03] MEDS: HYDROcodone/Acetaminophen 10/325 mg Tablet PO PRN ×3 (01:32→13:49)
[2019-11-03] MEDS: Morphine 2 MG/ML SYRINGE SLOW IVP PRN ×3 (03:49→16:08)
[2019-11-03] MEDS: Piperacillin/Tazobactam 3.375 GM in Sodium Chloride 0.9% 100 ML IVPB SCH ×4 (05:44→23:53)
[2019-11-03] MEDS: Ketorolac Tromethamine 30 MG/ML VIAL IVP SCH ×4 (05:44→23:53)
[2019-11-03] MEDS: D5 1/2 NS w/20 mEq KCL 1,000 ML IV SCH ×2 (05:45→18:31)
[2019-11-03 06:08] LABS: #Lymphocytes 0.7 thou/uL (1.20-3.40); #Monocytes 0.9 thou/uL (0.11-0.59); #Neutrophils 10.3 thou/uL (1.40-6.50); %Lymphocytes 6.2 % (21.0-51.0); %Monocytes 7.9 % (0.0-10.0); %Neutrophils 85.9 % (42.0-75.0); Hemoglobin 11.8 g/dL (12.0-16.0); Mean Corpuscular Hemoglobin 31.3 pg (27.0-31.0); Mean Platelet Volume 7.7 fL (7.4-10.4); Platelet Count 260 thou/uL (130-400); RBC Distribution Width 11.7 % (11.5-14.5); Red Blood Cell (RBC) Count 3.77 mill/uL (4.20-5.40); White Blood Cell (WBC) Count 11.9 thou/uL (4.8-10.8)
[2019-11-03 06:31] LABS: Anion Gap 12 mmol/L (10-20); BUN (Urea Nitrogen) 8 mg/dL (9.8-20.1); Calc. Creatinine Clearance 127 mL/min (70-130); Calcium 8.8 mg/dL (7.8-10.44); Carbon Dioxide 25 mmol/L (22-29); Chloride 103 mmol/L (98-107); Estimated GFR-MDRD 90; Glucose 171 mg/dL (70-105); Potassium 4.1 mmol/L (3.5-5.1); Sodium 136 mmol/L (136-145)
--- NOTE | 2019-11-03 07:17 | OP ---
DATE OF PROCEDURE: 11/02/2019 PREOPERATIVE DIAGNOSIS: Acute appendicitis. POSTOPERATIVE DIAGNOSIS: Acute appendicitis with perforation and abscess formation. PROCEDURE PERFORMED: Laparoscopic drainage of appendiceal abscess with extensive washout and placement of intraabdominal drain. ANESTHESIA: General endotracheal. INDICATIONS: The patient is a 54-year-old white female. She presented with a 1-week history of abdominal pain. CT scan showed findings consistent with acute appendicitis. She was taken to the operating room at this time for treatment. DESCRIPTION OF OPERATION: Informed consent was obtained. The patient was taken to the operating room, where general endotracheal anesthesia was obtained, placed in supine position. The abdomen was prepped with ChloraPrep and draped in sterile fashion. Local anesthetic was infiltrated and a 5 mm infraumbilical incision was created through which a Veress needle was passed into the peritoneal cavity. Pneumoperitoneum was established using carbon dioxide up to pressure of 15 mmHg. A 5 mm trocar port was passed through the same vision. Camera was passed through this port and under direct vision, I placed 2 additional ports using a 5 mm left lower quadrant port and a 12 mm suprapubic port. Attention was turned to the right lower quadrant. There was a large indurated mass at the cecum. The appendix was not visualized. I began to bluntly mobilize the cecum away from the lateral abdominal wall. As I did so, I eventually entered the abscess cavity. It was a large volume of claudio purulence. This was aspirated and submitted for culture. I was able to mobilize the distal small bowel and the cecum away from the lateral abdominal wall and the pelvic structures. It was possible that I could see the appendix, but it was still indurated, inflamed, that I could not adequately determine anatomy and could not grasp anything before beginning to dissect this from the cecum. I therefore did not feel this was amenable to resection. I did identify an obvious fecalith, which was grasped and removed intact. The former abscess cavity and residual appendix were copiously irrigated. All irrigant was aspirated. A #19 round fluted drain was obtained and brought out through the left lower quadrant port site and placed over across the area of the abscess and the residual appendix. The drain was secured to the skin exit site with 3-0 nylon suture. All ports and instruments were removed under direct vision. Pneumoperitoneum was carefully evacuated. 0.25% Marcaine with epinephrine was infiltrated at each port site. Skin edges were approximated with 4-0 Monocryl subcuticular suture and Dermabond placed externally. There were no complications. The patient tolerated the procedure well and was taken to recovery room in good condition. Job ID: [id number]
[2019-11-03] MEDS: Famotidine 20 MG TAB PO SCH ×2 (08:44→20:24)
[2019-11-03] MEDS: Enoxaparin Sodium 40 MG/0.4 ML SYRINGE SC SCH (08:44)
[2019-11-03] MEDS: Famotidine/PF 20 mg/2ml Vial SLOW IVP SCH ×2 (08:51→20:25)
[2019-11-03] MEDS: Ondansetron PF 4 MG/2 ML Vial IVP PRN (15:12)
[2019-11-04] MEDS ORDERED: Sodium Chloride 0.9% 1,000 ML IV SCH ×2 (01:00→02:30)
[2019-11-04 02:32] LABS: #Lymphocytes 0.9 thou/uL (1.20-3.40); #Monocytes 0.5 thou/uL (0.11-0.59); #Neutrophils 7.9 thou/uL (1.40-6.50); %Basophils 0.3 % (0.0-1.0); %Eosinophils 0.2 % (0.0-10.0); %Lymphocytes 9.6 % (21.0-51.0); %Monocytes 5.7 % (0.0-10.0); %Neutrophils 84.2 % (42.0-75.0); Hemoglobin 10.6 g/dL (12.0-16.0); Mean Corpuscular HGB CONC 32.1 g/dL (32.0-36.0); Mean Corpuscular Hemoglobin 31.2 pg (27.0-31.0); Mean Corpuscular Volume 97.1 fL (78.0-98.0); Mean Platelet Volume 7.2 fL (7.4-10.4); Platelet Count 231 thou/uL (130-400); RBC Distribution Width 11.9 % (11.5-14.5); Red Blood Cell (RBC) Count 3.39 mill/uL (4.20-5.40); White Blood Cell (WBC) Count 9.4 thou/uL (4.8-10.8)
[2019-11-04 02:50] LABS: Anion Gap 8 mmol/L (10-20); BUN (Urea Nitrogen) 6 mg/dL (9.8-20.1); Calc. Creatinine Clearance 121 mL/min (70-130); Calcium 7.9 mg/dL (7.8-10.44); Carbon Dioxide 27 mmol/L (22-29); Chloride 107 mmol/L (98-107); Estimated GFR-MDRD 85; Glucose 129 mg/dL (70-105); Potassium 4.2 mmol/L (3.5-5.1); Sodium 138 mmol/L (136-145)
[2019-11-04] MEDS: D5 1/2 NS w/20 mEq KCL 1,000 ML IV SCH ×3 (03:25→17:36)
[2019-11-04] MEDS: Piperacillin/Tazobactam 3.375 GM in Sodium Chloride 0.9% 100 ML IVPB SCH (05:10)
[2019-11-04] MEDS: Ketorolac Tromethamine 30 MG/ML VIAL IVP SCH ×3 (05:11→17:36)
--- NOTE | 2019-11-04 07:35 | CT ---
PRELIMINARY REPORT/[facility]/EMERGENCY AFTER HOURS PROCEDURE EXAM: CTA Chest with Intravenous Contrast CT Abdomen and Pelvis with Intravenous Contrast. CLINICAL HISTORY: LOW BP TACHYCARDIA TECHNIQUE: Axial CTA images of the chest, and CT images of the abdomen and pelvis with intravenous contrast. MIP reconstructed images were created and reviewed through the chest. CONTRAST: With; ISOVUE 370,100mL COMPARISON: CT - CT APPENDIX PROTOCOL - 11/02/2019 02:51 PM CDT FINDINGS: CHEST: Aorta: No acute finding. No abdominal aortic aneurysm. No dissection. Pulmonary arteries: The pulmonary arteries are adequately opacified. No pulmonary embolism. Lungs: Moderate bilateral dependent atelectasis. Pleural spaces: No pleural effusion. No pneumothorax. Heart and mediastinum: No cardiomegaly. No significant pericardial effusion. ABDOMEN: Liver: Unremarkable. No mass. Gallbladder and bile ducts: No calcified stone. No ductal dilation. Pancreas: Unremarkable. No ductal dilation. Spleen: Unremarkable. Adrenals: No mass. Kidneys and ureters: The kidneys enhance symmetrically. No hydronephrosis. No solid mass. Stomach and bowel: Gastric staple lines. Postoperative changes adjacent to cecum. No formed fluid collection to suggest drainable abscess. Appendix: The patient has undergone recent appendectomy, and there is an intraperitoneal drain. PELVIS: Bladder: Unremarkable. Reproductive: Unremarkable as visualized. Peritoneum: Anterior abdominal wall soft tissue gas and small volume pneumoperitoneum as well as a small volume o f free fluid are consistent with recent operative intervention. Bones: No acute osseous abnormality. IMPRESSION: 1. There is no intraluminal filling defect suspicious for PE. 2. Moderate bilateral dependent atelectasis. 3. Anterior abdominal wall soft tissue gas and small volume pneumoperitoneum as well as a small volum e of free fluid are consistent with recent operative intervention. 4. Postoperative changes adjacent to cecum. No formed fluid collection to suggest drainable abscess. ELECTRONICALLY SIGNED BY: Raul Duong MD November 04, 2019 3:12:25 AM CDT This report is intended for review by the ordering physician only, in accordance of law. If you recei ve this report in error, please call [facility] at [phone]. FINAL REPORT EXAM: CT ABDOMEN AND PELVIS HISTORY: Acute appendicitis. Abdominal pain. Recent appendectomy. COMPARISON: None. Procedure: Multiple contiguous axial images were obtained and a CT of the abdomen and pelvis with IV contrast. C oronal reformats were performed. FINDINGS: Lower Chest: Bibasilar atelectasis Vessels: Normal caliber aorta Heart: Normal heart size Abdomen: Portal vein:Patent Gallbladder: Surgically absent Liver: within normal limits. Pancreas: within normal limits. Spleen: within normal limits. Adrenals: within normal limits. Kidneys: Symmetric enhancement. No obstructive uropathy. Peritoneum: Expected postoperative free air. There is small amount of fluid in the right hemiabdomen. There is an external drainage catheter in the right lower quadrant. Small focus of possible extraluminal air with associated phlegmonous change in the right lower quadrant. No definite abscess. Bowel: Limited evaluation due to the lack of oral contrast administration. No evidence of bowel obstr uction. Ileocecal junction is unremarkable. Normal caliber appendix. Scattered fecal material in a nondistended, nondilated colon. Mesentery and Retroperitoneum: No enlarged mesenteric or retroperitoneal lymph nodes. Abdominal Wall: Subcutaneous emphysema compatible with recent appendectomy Pelvis: Reproductive Organs: Reproductive organs are unremarkable. Pelvis: No mass, lymphadenopathy, free air or free fluid. Bladder: within normal limits. Bones: within normal limits. IMPRESSION: 1. This report is in agreement with initial report by [facility]. 2. Findings compatible with recent appendectomy. 3. No evidence of a drainable abscess. Small focus of phlegmon and extraluminal air is noted. Transcribed Date/Time: 11/04/2019 7:43 AM
--- NOTE | 2019-11-04 07:36 | CT ---
PRELIMINARY REPORT/[facility]/EMERGENCY AFTER HOURS PROCEDURE EXAM: CTA Chest with Intravenous Contrast CT Abdomen and Pelvis with Intravenous Contrast. CLINICAL HISTORY: LOW BP TACHYCARDIA TECHNIQUE: Axial CTA images of the chest, and CT images of the abdomen and pelvis with intravenous contrast. MIP reconstructed images were created and reviewed through the chest. CONTRAST: With; ISOVUE 370,100mL COMPARISON: CT - CT APPENDIX PROTOCOL - 11/02/2019 02:51 PM CDT FINDINGS: CHEST: Aorta: No acute finding. No abdominal aortic aneurysm. No dissection. Pulmonary arteries: The pulmonary arteries are adequately opacified. No pulmonary embolism. Lungs: Moderate bilateral dependent atelectasis. Pleural spaces: No pleural effusion. No pneumothorax. Heart and mediastinum: No cardiomegaly. No significant pericardial effusion. ABDOMEN: Liver: Unremarkable. No mass. Gallbladder and bile ducts: No calcified stone. No ductal dilation. Pancreas: Unremarkable. No ductal dilation. Spleen: Unremarkable. Adrenals: No mass. Kidneys and ureters: The kidneys enhance symmetrically. No hydronephrosis. No solid mass. Stomach and bowel: Gastric staple lines. Postoperative changes adjacent to cecum. No formed fluid collection to suggest drainable abscess. Appendix: The patient has undergone recent appendectomy, and there is an intraperitoneal drain. PELVIS: Bladder: Unremarkable. Reproductive: Unremarkable as visualized. Peritoneum: Anterior abdominal wall soft tissue gas and small volume pneumoperitoneum as well as a small volume o f free fluid are consistent with recent operative intervention. Bones: No acute osseous abnormality. IMPRESSION: 1. There is no intraluminal filling defect suspicious for PE. 2. Moderate bilateral dependent atelectasis. 3. Anterior abdominal wall soft tissue gas and small volume pneumoperitoneum as well as a small volum e of free fluid are consistent with recent operative intervention. 4. Postoperative changes adjacent to cecum. No formed fluid collection to suggest drainable abscess. ELECTRONICALLY SIGNED BY: Raul Duong MD November 04, 2019 3:12:25 AM CDT This report is intended for review by the ordering physician only, in accordance of law. If you recei ve this report in error, please call [facility] at [phone]. FINAL REPORT Exam: CT angiogram of the chest HISTORY: Recent surgery for appendectomy. Hypotension. Tachycardia. COMPARISON: None TECHNIQUE: CT angiogram of the chest is performed in the axial plane. Three-dimensional reformatted i mages are submitted for interpretation FINDINGS: Mediastinum: No mass, lymphadenopathy or hematoma. HEART: Normal size. No significant pericardial fluid. Aorta: No aneurysm or dissection Upper solid abdominal viscera: No abnormality enhancement. Trachea and central bronchi: Patent Pleural spaces: No effusion Lung parenchyma: Parenchymal changes in both lower lobes may represent scar, atelectasis or aspiratio n. Pneumothorax: None Osseous structures: No lytic or blastic lesions Pulmonary arteries: Adequate contrast opacification pulmonary arterial system to the level of segment al arteries. No filling defect to suggest pulmonary embolism IMPRESSION: 1. This report is in agreement with initial report by [facility]. 2. No evidence of pulmonary artery aneurysm to level of segmental arteries. 3. Lung parenchymal changes as detailed above. Transcribed Date/Time: 11/04/2019 7:41 AM
[2019-11-04] MEDS: Famotidine/PF 20 mg/2ml Vial SLOW IVP SCH ×2 (08:10→19:56)
[2019-11-04] MEDS: Famotidine 20 MG TAB PO SCH ×2 (08:13→19:56)
[2019-11-04] MEDS ORDERED: Lactated Ringer's 500 ML IV SCH (09:30)
[2019-11-04] MEDS: Morphine 2 MG/ML SYRINGE SLOW IVP PRN ×2 (09:42→15:15)
[2019-11-04] MEDS: Enoxaparin Sodium 40 MG/0.4 ML SYRINGE SC SCH (09:44)
[2019-11-04] MEDS ORDERED: Iopamidol 370 76% 100 ML VIAL ONE (09:53)
[2019-11-04] MEDS: MEROPENEM 1 GM/50 ML 1 GM in Premix Bag 1 BAG IVPB SCH ×2 (10:27→17:35)
--- NOTE | 2019-11-04 17:24 | PRG ---
DATE OF SERVICE: 11/04/2019 SUBJECTIVE: Ms. Johnson is postoperative day #2 following laparoscopic drainage of appendiceal abscess with extensive washout and placement of intraabdominal drain. Yesterday, when I saw her, she appeared to be doing very well. She was tolerating clear liquids, but I did not advance her. She had almost no bowel sounds. She was afebrile with normal vital signs. During the night, she developed fairly sudden onset of problems at about 11 p.m. At that time, she became tachycardic with a heart rate of 130, whereas her heart rate had been 97 previously. At that same time, her blood pressure dropped down to 84/51. She was managed with an EKG, which showed sinus tachycardia, 2 L of fluid boluses, and a CT angio of the chest as well as abdomen and pelvis. Her tachycardia resolved with the IV fluid administration, and during the day, today she has been back in the 80s to 90s. Her blood pressure has slowly stabilized and she is running about 100/60 currently. She has been afebrile throughout. She has also felt stable. She has not been short of breath or had any chest pain. She has complained of appropriate abdominal pain. She has neither been nauseated nor has she vomited. Today, she has passed flatus and had a bowel movement. She has been voiding. She has been ambulating in the halls. PHYSICAL EXAMINATION: VITAL SIGNS: As above. Her current vital signs are temperature 98.5, pulse 99, and blood pressure 102/58. LUNGS: Clear to auscultation anteriorly. ABDOMEN: Substantially softer than it was previously. Bowel sounds are definitely present and fairly normoactive. Laparoscopic incisions are healing nicely. Drain output is serosanguineous. There is certainly no enteric material. There is minimal purulence visible. LABORATORY DATA: Her CBC revealed white blood cell count is 9.4, hemoglobin is 10.6, and platelet count is 231. These labs were obtained at 2:30 in the morning when she still appeared to be unstable. Her basic metabolic panel shows normal electrolytes. Her CO2 is normal at 27. Her renal function is normal. Her creatinine is 0.7. Her sugars have been well controlled. ASSESSMENT: The patient had an episode of tachycardia and hypotension. It is difficult to explain. She seemed to have responded to IV fluid administration, but she never had an elevated BUN or creatinine beforehand to suggest significant dehydration or hypovolemia. I empirically changed antibiotics today from Zosyn to meropenem. Her cultures are still pending and revealed only a gram-negative carlos enrique that is growing, that is presumed to be Escherichia coli. I have advanced her to bariatric full liquids today. I have encouraged her to continue to ambulate. I will continue her IV fluids for now. I will obtain repeat laboratory studies and examination tomorrow. Depending upon her course, I would hope that she would be able to be discharged with oral antibiotics and probably leaving her drain in place for discharge. Job ID: [id number]
[2019-11-04] MEDS: HYDROcodone/Acetaminophen 10/325 mg Tablet PO PRN (22:47)
[2019-11-05] MEDS: Ketorolac Tromethamine 30 MG/ML VIAL IVP SCH ×3 (00:20→11:01)
[2019-11-05] MEDS: D5 1/2 NS w/20 mEq KCL 1,000 ML IV SCH (02:22)
[2019-11-05] MEDS: MEROPENEM 1 GM/50 ML 1 GM in Premix Bag 1 BAG IVPB SCH ×2 (02:22→08:59)
[2019-11-05 05:44] LABS: #Eosinphils 0.2 thou/uL (0.0-0.7); #Lymphocytes 1.3 thou/uL (1.20-3.40); #Monocytes 0.6 thou/uL (0.11-0.59); #Neutrophils 6.2 thou/uL (1.40-6.50); %Basophils 0.4 % (0.0-1.0); %Eosinophils 2.2 % (0.0-10.0); %Lymphocytes 15.6 % (21.0-51.0); %Monocytes 7.2 % (0.0-10.0); %Neutrophils 74.5 % (42.0-75.0); Hemoglobin 10.1 g/dL (12.0-16.0); Mean Corpuscular HGB CONC 31.9 g/dL (32.0-36.0); Mean Corpuscular Hemoglobin 31.1 pg (27.0-31.0); Mean Corpuscular Volume 97.6 fL (78.0-98.0); Mean Platelet Volume 7.2 fL (7.4-10.4); Platelet Count 243 thou/uL (130-400); RBC Distribution Width 11.8 % (11.5-14.5); Red Blood Cell (RBC) Count 3.24 mill/uL (4.20-5.40); White Blood Cell (WBC) Count 8.4 thou/uL (4.8-10.8)
[2019-11-05 05:59] LABS: Anion Gap 8 mmol/L (10-20); BUN (Urea Nitrogen) 4 mg/dL (9.8-20.1); Calc. Creatinine Clearance 149 mL/min (70-130); Carbon Dioxide 27 mmol/L (22-29); Chloride 109 mmol/L (98-107); Estimated GFR-MDRD Greater than 90; Glucose 95 mg/dL (70-105); Sodium 140 mmol/L (136-145)
[2019-11-05] MEDS: Famotidine 20 MG TAB PO SCH (08:25)
[2019-11-05] MEDS: Enoxaparin Sodium 40 MG/0.4 ML SYRINGE SC SCH (08:25)
[2019-11-05] MEDS: Famotidine/PF 20 mg/2ml Vial SLOW IVP SCH (08:29)
[2019-11-05 08:30] VITALS: BP 98/65; TEMP 98.2
[2019-11-05] MEDS: HYDROcodone/Acetaminophen 10/325 mg Tablet PO PRN (10:56)
--- NOTE | 2019-11-05 12:08 | DIS ---
DATE OF ADMISSION: 11/02/2019 DATE OF DISCHARGE: 11/05/2019 ADMISSION DIAGNOSIS: Acute appendicitis. DISCHARGE DIAGNOSES: Severe perforated appendicitis with appendiceal abscess. PROCEDURES PERFORMED: Laparoscopic drainage of appendiceal abscess with abdominal washout and placement of drain. ADMISSION HISTORY: The patient is a 54-year-old female, well known to myself from two prior abdominal surgeries. Most recently about 6 months ago, she underwent a laparoscopic gastric bypass. She has done well in regard to that. She presented at this time with a 1-week history of persistent and progressive right lower quadrant abdominal pain. CT scan showed evidence of appendicitis. HOSPITAL COURSE: She was taken the operating room, where laparoscopic appendectomy was planned. She had such severe inflammation that appendectomy was not possible. I did encounter an abscess and drained a substantial volume of purulent material. Cultures were obtained of this that have revealed Klebsiella and suspected anaerobic organisms that are not . She initially did well after surgery. However, on the evening of postoperative day #1, she developed hypotension and tachycardia. She underwent extensive treatment and evaluation. She had a CT angio of her chest as well as a CT abdomen and pelvis. These revealed no significant abnormality. Her laboratory studies were essentially stable as well. She was treated with large volume IV fluid resuscitation and received 2 L during that night. Her blood pressure stabilized and her tachycardia resolved. She has continued to have relatively low blood pressure with most recent blood pressure being 98/65. Her heart rate was 83. She has felt well from a systemic standpoint. She notes persistent abdominal pain both in the left and right lower abdomen. She still has a drain in, which continues to drain serosanguineous fluid. There is no bilious or enteric material. Her drain put out 45 mL yesterday. She has had bowel movements. She is felt to be stable for discharge home today. Today is postoperative day #3. In light of her cultures, I will discharge her home on Cipro and Flagyl. She does not believe she requires anything stronger than [id number] pain medication. She will be given instructions for drain care and I would like to see her back in four days with plans for removing her drain at that time. Job ID: [id number]
--- NOTE | 2019-11-08 06:19 | PQF ---
MICHAEL BOWMAN MICHAEL W MD [id number] [facility]G A- 3332 [id number] CLINICAL DOCUMENTATION CLARIFICATION FORM: POST DISCHARGE Addendum to original discharge summary date: ____ Late entry note date: __ DATE:11/08/2019 ATTN: Donny Olson Please exercise your independent, professional judgment in responding to the clarification form. Clinical indicators are provided on the bottom of this form for your review Please check appropriate box(s): [ ] Postoperative Shock due to E.Coli [x ] Postoperative Shock Unspecified [ ] Shock Unspecified [ ] Other diagnosis [ ] Unable to determine In addition, please specify: Present on Admission (POA): [ ] Yes [ x ] No [ ] Unable to determine For continuity of documentation, please document condition throughout progress notes and discharge summary. Thank You. CLINICAL INDICATORS - SIGNS / SYMPTOMS / LABS Bacterial culture for Appendix abscess 11/01 Positive with Klebsiella Pneumoniea, Gram negative Mike Vital signs 11/01 BP 130/85, Pulse 85, Resp 19, Temp 97.4 Vital signs 11/03 BP 102/58, Pulse 99, Temp 98.5 PN p1 11/03 Pt had an episode of tachycardia and hypotension, it is difficult to explain.' PN p1 11/03 Her culture are still pending and revealed only a gram-negative mike that is growing that is presumed to be E coli Discharge summary 11/04 On evening of postoperative day 1, she develop hypotension and tachycardia. Discharge summary 11/04 She felt well from a systemic standpoint RISK FACTORS Operative report 11/01 54 year-old- Female Operative report 11/01 Acute appendicitis with perforation and abscess formation Operative report 11/01 S/p drainage of appendiceal abscess TREATMENTS: AUG 17 IV Zosyn 3.375gm AUG 17 IV Bolus Normal Saline 2L (This form is maintained as a part of the permanent medical record) 2014 [employer] All Rights Reserved Chiquis MTDChance
--- NOTE | 2019-11-08 06:20 | PQF ---
MICHAEL BOWMAN MICHAEL W MD [id number] [facility] A- 3332 [id number] CLINICAL DOCUMENTATION CLARIFICATION FORM: POST DISCHARGE Addendum to original discharge summary date: ____ Late entry note date: __ DATE: ATTN: Donny Olson Please exercise your independent, professional judgment in responding to the clarification form. Clinical indicators are provided on the bottom of this form for your review Please check appropriate box(es): [ x ] Sepsis due to Acute appendicitis with perforation and abscess formation [ ] Septic Shock [ ] Localized infection without sepsis [ ] Other diagnosis [ ] Unable to determine In addition, please specify: Present on Admission (POA): [ ] Yes [ ] No [ ] Unable to determine For continuity of documentation, please document condition throughout progress notes and discharge summary. Thank You. CLINICAL INDICATORS - SIGNS / SYMPTOMS / LABS Laboratory 11/01 WBC 10.0, Plat count 290, Neutrophils 72.2 Laboratory 11/02 WBC 11.9, Plat count 260, Neutrophils 85.9 Bacterial culture for Appendix abscess 11/01 Positive with Klebsiella Pneumonia , Gram negative Mike Vital signs 11/01 BP 130/85, Pulse 85, Resp 19, Temp 97.4 Vital signs 11/03 BP 102/58, Pulse 99, Temp 98.5 ED notes p2 11/01 SIRS Scoring: Pt did meet at least 1 criteria Operative report p1 11/01 Presented with a 1-week history of abdominal pain PN p1 11/03 Pt had an episode of tachycardia and hypotension, it is difficult to explain. PN p1 11/03 Her culture are still pending and revealed on ly a gram-negative mike that is growing that is presumed to be E coli Discharge summary p1 11/04 On evening of postoperative day 1, she develop hypotension and tachycardia. Discharge summary p1 11/04 She felt well from a systemic standpoint RISK FACTORS Operative report p1 11/01 54 year-old- Female Operative report p1 11/01 Acute appendicitis with perforation and abscess formation TREATMENTS: Operative report p1 11/01 S/p drainage of appendiceal abscess AUG 17 IV Zosyn 3.375gm AUG 17 IV Bolus Normal Saline 2L (This form is maintained as a part of the permanent medical record) 2014 [employer]. All Rights Reserved [email or web address]
--- NOTE | 2019-11-08 20:04 | PQF ---
MICHAEL BOWMAN MICHAEL W MD [id number] [facility] A- 3332 [id number] CLINICAL DOCUMENTATION CLARIFICATION FORM: POST DISCHARGE Addendum to original discharge summary date: ____ Late entry note date: __ DATE: ATTN: Donny Olson Please exercise your independent, professional judgment in responding to the clarification form. Clinical indicators are provided on the bottom of this form for your review Diagnosis: Sepsis Present on Admission (POA): [ ] Yes [x ] No [ ] Unable to determine Coding guidelines require hospitals to identify whether a diagnosis was present on admission (POA) or not. To accurately assign the appropriate POA indicator, this information must be clearly documented within the medical record. CLINICAL INDICATORS - SIGNS / SYMPTOMS / LABS Laboratory 11/01 WBC 10.0, Plat count 290, Neutrophils 72.2 Laboratory 11/02 WBC 11.9, Plat count 260, Neutrophils 85.9 Bacterial culture for Appendix abscess 11/01 Positive with Klebsiella Pneumoniea, Gram negative Mike Vital signs 11/01 BP 130/85, Pulse 85, Resp 19, Temp 97.4 Vital signs 11/03 BP 102/58, Pulse 99, Temp 98.5 ED notes p2 11/01 SIRS Scoring: Pt did meet at least 1 criteria Operative report p1 11/01 Presented with a 1-week history of abdominal pain PN p1 11/03 Pt had an episode of tachycardia and hypotension, it is difficult to explain. PN p1 11/03 Her culture are still pending and revealed on ly a gram-negative mike that is growing that is presumed to be E coli Discharge summary p1 11/04 On evening of postoperative day 1, she develop hypotension and tachycardia. Discharge summary p1 11/04 She felt well from a systemic standpoint Physician documentation p1 11/07 Sepsis due to Acute Appendicitis with perforation and abscess formation RISK FACTORS Operative report p1 11/01 54 year-old- Female Operative report p1 11/01 Acute appendicitis with perforation and abscess formation TREATMENTS: Operative report p1 11/01 S/p drainage of appendiceal abscess AUG 17 IV Zosyn 3.375gm AUG 17 IV Bolus Normal Saline 2L (This form is maintained as a part of the permanent medical record) 2014 [employer]. All Rights Reserved [email or web address]
--- NOTE | 2019-11-11 23:24 | EKG ---
Test Reason : STAT Blood Pressure : / mmHG Vent. Rate : 131 BPM Atrial Rate : 131 BPM P-R Int : 162 ms QRS Dur : 070 ms QT Int : 278 ms P-R-T Axes : 034 016 009 degrees QTc Int : 410 ms Sinus tachycardia Otherwise normal ECG When compared with ECG of 12-APR-2018 12:30, Vent. rate has increased BY 59 BPM Confirmed by Audelia WELCH ([id number]) on 11/11/2019 11:24:27 PM Referred By: MALIKA Confirmed By:Audelia WELCH
== END 2019-11-05 11:24 | disposition home or self-care (01) | DRG 338 ==
LOC: ERS 11:02 → SURG A 15:23 → ERS 19:38 → SURG A 20:51
PROVIDERS: ADMIT Specialist; ATTEND Specialist
PROC: 0D9J40Z Drainage of Appendix with Drainage Device, Percutaneous Endoscopic Approach (ICD-10-PCS; principal; 2019-11-02)
DX: K35.33 Acute appendicitis with perforation, localized peritonitis, and gangrene, with abscess (principal); A41.9 Sepsis, unspecified organism; T81.10XA Postprocedural shock unspecified, initial encounter; F32.9 Major depressive disorder, single episode, unspecified; B96.20 Unspecified Escherichia coli [E. coli] as the cause of diseases classified elsewhere; Z90.49 Acquired absence of other specified parts of digestive tract; Z98.84 Bariatric surgery status; Z79.899 Other long term (current) drug therapy; K38.1 Appendicular concretions; Y83.8 Other surgical procedures as the cause of abnormal reaction of the patient, or of later complication, without mention of misadventure at the time of the procedure
CPT/HCPCS: 36415; 71275; 74177; 80048; 80053; 81003; 83690; 85025; 87070; 87077; 87186; 87205; 93005; 93010; 96361; 96365; 96367; 96375; J1100; J1650; J1885; J2001; J2185; J2270; J2405; J2543; J2550; J2704; J3010; J3411; J3480; J3490; Q9967; S0020; S0028

== ENCOUNTER 2019-11-20 10:17 | Emergency (ER) | payer BC ==
[2019-11-20 11:05] LABS: ALT (SGPT) 15 U/L (8-55); AST (SGOT) 17 U/L (5-34); Alkaline Phosphatase 113 U/L (40-110); Anion Gap 13 mmol/L (10-20); BUN (Urea Nitrogen) 13 mg/dL (9.8-20.1); Bilirubin, Total 0.6 mg/dL (0.2-1.2); Calc. Creatinine Clearance 0 mL/min (70-130); Calcium 9.8 mg/dL (7.8-10.44); Carbon Dioxide 25 mmol/L (22-29); Chloride 107 mmol/L (98-107); Estimated GFR-MDRD Greater than 90; Globulin 3.4 g/dL (2.4-3.5); Glucose 100 mg/dL (70-105); Potassium 3.7 mmol/L (3.5-5.1); Protein, Total 7.4 g/dL (6.0-8.3); Sodium 141 mmol/L (136-145)
[2019-11-20 11:06] LABS: Bilirubin Negative (Negative); Blood, Urine Negative (Negative); Clarity Clear (Clear); Glucose, Urine (Dipstick) Normal (Negative); Leukocyte Negative Leu/uL (Negative); Nitrite Negative (Negative); Protein, Urine (Dipstick) Negative (Neg-Trace); Urobilinogen Normal mg/dL (Less than 2)
[2019-11-20 11:19] LABS: #Basophils 0.1 thou/uL (0.0-0.2); #Eosinphils 0.1 thou/uL (0.0-0.7); #Monocytes 0.4 thou/uL (0.11-0.59); #Neutrophils 2.3 thou/uL (1.40-6.50); %Basophils 1.6 % (0.0-1.0); %Lymphocytes 40.3 % (21.0-51.0); %Monocytes 8.2 % (0.0-10.0); %Neutrophils 47.9 % (42.0-75.0); Hemoglobin 13.3 g/dL (12.0-16.0); Mean Corpuscular Volume 93.7 fL (78.0-98.0); Mean Platelet Volume 7.7 fL (7.4-10.4); Platelet Count 482 thou/uL (130-400); RBC Distribution Width 12.9 % (11.5-14.5); Red Blood Cell (RBC) Count 4.31 mill/uL (4.20-5.40); White Blood Cell (WBC) Count 4.9 thou/uL (4.8-10.8)
--- NOTE | 2019-11-20 13:39 | CT ---
CT ABDOMEN AND PELVIS WITH IV CONTRAST: Indications: Abdominal pain. History of appendicitis with surgery on 11-02-2019. The technologist note s that the appendix was unable to be removed. Comparison: CT abdomen, 11-04-2019. FINDINGS: The lung bases clear. Liver, spleen, pancreas unremarkable. Review of kidneys again shows a prominent left renal pelvis whi ch is a stable finding. Kidneys otherwise unremarkable. Small bowel loops show nonspecific distention. The drainage tubes seen extending into the right abdomen on the 11-04-2019 exam has been removed. Inflammatory changes in the right lower quadrant at the site of surgery and appendicitis. There is no loculated fluid or abscess collection seen. There is a small linear density with air pockets which m ay represent residual appendix at the site of this inflammatory change. Uterus and adnexa unremarkable. Urinary bladder unremarkable. IMPRESSION: Inflammatory changes in the right lower quadrant at the site of recent surgery. There is no evidence of fluid or abscess collection. POS: AGW
== END 2019-11-20 15:42 | disposition home or self-care (01) ==
LOC: ERS 10:17
DX: R10.31 Right lower quadrant pain (principal); R10.32 Left lower quadrant pain; F32.9 Major depressive disorder, single episode, unspecified; Z79.899 Other long term (current) drug therapy
CPT/HCPCS: 36415; 74177; 80053; 81003; 83605; 85025; 93005; 96360; Q9967

== ENCOUNTER 2019-12-13 12:08 | Outpatient (CLI) | payer BC ==
[2019-12-13] MEDS ORDERED: Iopamidol-370 76% 500 ML 1 ML ONE (13:48)
--- NOTE | 2019-12-13 13:58 | CT ---
CT ABDOMEN AND PELVIS WITH IV CONTRAST: 12/13/19 Oral contrast was administered. INDICATIONS: Abdominal pain. History of ruptured appendix October 20h with abscess. Apparently surgery was performed b ut history states the appendix was unable to be removed. Correlation made to CT abdomen and pelvis of 11/20/19 which revealed inflammatory changes in the right lower quadrant without fluid or abscess collection. FINDINGS: Lung bases remain clear. Liver, spleen, pancreas unremarkable. Postoperative changes involving the st omach again noted. Post cholecystectomy change. Adrenal glands and kidneys unremarkable. Mildly prominent extrarenal left renal pelvis is unchanged i n appearance. The left ureter is normal. The urinary bladder appears normal. No evidence of calculus. Small bowel loops show nonspecific distention without dilatation. There continues to be inflammatory haziness and stranding in the right lower quadrant surrounding ben t appears to be a residual appendix seen posterolaterally to the cecum. No fluid or abscess collectio n identified. Images through the pelvis show unremarkable uterus and adnexa. Urinary bladder unremarkable. No evidence of adenopathy. IMPRESSION: Continues to be inflammatory changes surrounding the cecum and appendix. The inflammatory changes terry ear slightly improved when compared to 11/20/19. There is no evidence of fluid or abscess collection. POS: CLARICE
== END 2019-12-13 12:09 | disposition home or self-care (01) ==
LOC: BICCT 12:08
PROVIDERS: ATTEND Specialist
DX: K35.32 Acute appendicitis with perforation, localized peritonitis, and gangrene, without abscess (principal)
CPT/HCPCS: 74177; Q9967

== ENCOUNTER 2020-02-04 17:54 | Day surgery (SDC) | payer BC ==
[~2020-02-04 17:54] MED LIST changes: +Dexamethasone 20 MG/5 ML VIAL ONE; -Iopamidol 370 76% 50 ML VIAL FS ONE; -Iopamidol-370 76% 500 ML 1 ML ONE; +Lidocaine 1% PF 5 ML VIAL ONE; +Ondansetron PF 4 MG/2 ML Vial ONE; +PROPOFOL 200 MG/20 ML VIAL ONE; +Rocuronium Bromide 10 MG/ML (10ML VIAL) ONE; +Succinylcholine Chloride 20 MG/ML 10 ml SYRINGE FS ONE
[2020-02-04] MEDS ORDERED: Piperacillin/Tazobactam 3.375 GM VIAL ONE (18:11)
[2020-02-04] MEDS ORDERED: Sodium Chloride 0.9% 100 ML ONE (18:11)
[2020-02-04] MEDS ORDERED: Bupivacaine 0.25% HCL 30 ML VIAL ONE (18:23)
[2020-02-04] MEDS ORDERED: Lidocaine 1% w/Epinephrine 1:100K 20 ML VIAL ONE (18:23)
[2020-02-04] MEDS ORDERED: Fentanyl 100 MCG/2 ML VIAL ONE (18:35)
--- NOTE | 2020-02-04 19:32 | HP ---
CHIEF COMPLAINT: Right lower quadrant abdominal pain, CT abnormality, elevated CRP. HISTORY OF PRESENT ILLNESS: The patient is a 54-year-old white female, well known to myself. She is status post laparoscopic gastric bypass in April 2019 and status post laparoscopy for appendiceal abscess without appendectomy on November 01. I actually just saw her back in my office yesterday for routine followup and she was entirely asymptomatic and doing well from a bariatric standpoint. Last night, she developed a fever up to 101. 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 She presented today for a COVID screening, which was negative. She also noted some abdominal discomfort after voiding, which was the only symptom that she had at the time of her prior appendicitis. For this reason, she underwent further studies. This did show a dilated appendix with periappendiceal edema and an appendicolith. Findings were felt to be potentially consistent with acute appendicitis. Her white blood cell count was normal. Her CRP, however, was quite elevated at 100. I was contacted and accepted her in transfer from outside freestanding emergency room. PAST MEDICAL HISTORY: 1. History of SVT. 2. Hypertension. 3. Esophageal reflux. 4. Bradycardia. 5. History of obesity. PAST SURGICAL HISTORY: 1. Laparoscopic Twila fundoplication in 2010. 2. Cardiac ablation. 3. Right knee arthroscopy in 2012. 4. Left knee arthroscopy in 2016. 5. Laparoscopic gastric bypass in April 2019. 6. Attempted laparoscopic appendectomy with drainage of appendiceal abscess in October 2019. MEDICATIONS: Currently are, 1. Seroquel. 2. Vitamins. 3. She has gone off all of her cholesterol and blood pressure medications since her surgery. Her weight loss has dropped from 233 down to 175 pounds. ALLERGIES: NO KNOWN DRUG ALLERGIES. PERSONAL AND SOCIAL HISTORY: She is with 3 children. 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 Her is present. She does not smoke nor does she drink alcohol. REVIEW OF SYSTEMS: Unremarkable. FAMILY HISTORY: Noncontributory. PHYSICAL EXAMINATION: VITAL SIGNS: She is afebrile. Vital signs are within normal limits. GENERAL: She is a well-developed, well-nourished, pleasant white female, in no acute distress. She is alert and oriented x3. HEAD, EYES, EARS, NOSE, AND THROAT: Unremarkable. NECK: Supple without mass or tenderness. LUNGS: Clear to auscultation throughout. CARDIAC: Regular rate and rhythm without murmur. ABDOMEN: Soft, nontender, and nondistended. With deeper palpation, she does have differential discomfort in the right lower quadrant compared to the left. EXTREMITIES: Unremarkable. ASSESSMENT: The patient with findings potentially consistent with recurrent appendicitis following her prior episode of appendicitis three months ago. I recommend laparoscopic appendectomy. I discussed the operation in detail with the patient and her as well as potential risks. If this is found to be difficult/impossible, I told her I would consider proceeding with a hand-assisted ileocecectomy. She understands and agrees to proceed with surgery at this time. Job ID: [id number]
[2020-02-04] MEDS ORDERED: Meperidine HCl/PF 25 MG/ML VIAL ONE (20:31)
[2020-02-04] MEDS ORDERED: HYDROcodone/Acetaminophen 5/325 mg Tablet ONE (20:58)
--- NOTE | 2020-02-05 01:16 | OP ---
DATE OF PROCEDURE: 02/04/2020 PREOPERATIVE DIAGNOSIS: Recurrent appendicitis. POSTOPERATIVE DIAGNOSIS: Recurrent appendicitis. PROCEDURE PERFORMED: Laparoscopic appendectomy. ANESTHESIA: General endotracheal. INDICATIONS FOR PROCEDURE: The patient is a 54-year-old white female. She had a history of ruptured appendix with periappendiceal abscess in October of this year. She underwent laparoscopic drainage of her appendiceal abscess, but I was unable to remove the appendix at that time. She returns at this time after she sustained a fever last night and had an elevated CRP and abdominal symptoms. CT scan performed at an outside facility was read as consistent with acute appendicitis. She was taken to the operating room at this time for laparoscopic appendectomy (interval appendectomy). DESCRIPTION OF OPERATION: Informed consent was obtained. The patient was taken to the operating room, where general endotracheal anesthesia was obtained with the patient in supine position. Hicks catheter was placed. Abdomen was prepped with ChloraPrep and draped in sterile fashion. Local anesthetic was infiltrated and 5 mm infraumbilical incision was reopened. Veress needle was passed through this incision into the peritoneal cavity and pneumoperitoneum was established using carbon dioxide up to pressure of 15 mmHg. A 5 mm trocar port was passed through the same incision. A laparoscopic camera was passed through this port. Under direct vision, I placed two additional ports including a 5 mm left lower quadrant port and a 12 mm suprapubic port. Attention was turned to the right lower quadrant. There were noted to be extraordinarily few adhesions within the abdomen. The cecum was easily visualized. There were some minor lateral adhesions in the area of the prior abscess and these were soft and easily mobilized. The appendix was easily visualized. Again, there were some adhesions to the appendix, but these were easily taken down, which allowed full access to the appendix. The appendix was grasped and the mesoappendix was taken down using LigaSure dissection. The base of the appendix was skeletonized. The appendix was divided between PDS Endoloop ties. The appendix was placed in a specimen retrieval sac, which was removed through the suprapubic port. The fascia was closed using 0 Vicryl suture with a GraNee needle. The appendiceal stump was cauterized. The abdominal cavity was irrigated and all irrigant was aspirated. The pelvis was inspected and found to be without purulence or bloody fluid. The gynecologic structures were examined and other than a couple of relatively small fibroid tumors, there were no other abnormalities noted. The ports and instruments were removed under direct vision. Pneumoperitoneum was carefully evacuated. Additional local anesthetic was infiltrated into each port site. Skin edges were approximated with 4-0 Monocryl subcuticular suture and Dermabond was placed externally. There were no complications. The patient tolerated the procedure well and was taken to recovery room in stable condition. Job ID: [id number]
== END 2020-02-04 21:28 | disposition home or self-care (01) ==
LOC: ERS 17:54 → EDSTATUS 18:56 → SDC 18:56
PROVIDERS: ATTEND Specialist
PROC: 0DTJ4ZZ Resection of Appendix, Percutaneous Endoscopic Approach (ICD-10-PCS; principal; 2020-02-04)
DX: K36 Other appendicitis (principal); I10 Essential (primary) hypertension; K21.9 Gastro-esophageal reflux disease without esophagitis; Z79.899 Other long term (current) drug therapy; Z20.828 Contact with and (suspected) exposure to other viral communicable diseases
CPT/HCPCS: 88304; J1100; J2175; J2405; J2543; J2704; J3010; J3490; S0020

== ENCOUNTER 2020-03-08 12:53 | Outpatient (CLI) | payer BC ==
--- NOTE | 2020-03-08 15:34 | MMO ---
Bilateral MAMMO Bilat Screen [facility]. CLINICAL HISTORY: Patient is 55 years old and is seen for screening. The patient has the following family history of breast cancer: paternal aunt, at age 50, malignant (generic). The patient has no personal history of cancer. VIEWS: The views performed were: bilateral craniocaudal with tomosynthesis and bilateral mediolateral oblique with tomosynthesis. FILMS COMPARED: The present examination has been compared to prior imaging studies performed at [facility] on 03/11/2013, 07/06/2014, 04/25/2016 and 02/15/2019. This study has been interpreted with the assistance of computer-aided detection. MAMMOGRAM FINDINGS: There are scattered fibroglandular densities. There are no suspicious masses, suspicious calcifications, or new areas of architectural distortion. IMPRESSION: THERE IS NO MAMMOGRAPHIC EVIDENCE OF MALIGNANCY. A ROUTINE FOLLOW-UP MAMMOGRAM IN 1 YEAR IS RECOMMENDED. THE RESULTS OF THIS EXAM WERE SENT TO THE PATIENT. ACR BI-RADS Category 1 - Negative MAMMOGRAPHY NOTE: 1. A negative mammogram report should not delay a biopsy if a dominant of clinically suspicious mass is present. 2. Approximately 10% to 15% of breast cancers are not detected by mammography. 3. Adenosis and dense breasts may obscure an underlying neoplasm. Reported by: MAXINE ROGERS MD Electonically Signed: [id number]
== END 2020-03-08 12:54 | disposition home or self-care (01) ==
LOC: BICMAMMO 12:53
PROVIDERS: ATTEND Family Medicine
DX: Z12.31 Encounter for screening mammogram for malignant neoplasm of breast (principal); Z80.3 Family history of malignant neoplasm of breast
CPT/HCPCS: 77063; 77067

== ENCOUNTER 2020-04-02 14:44 | Outpatient (CLI) | payer BC ==
--- NOTE | 2020-04-02 16:59 | RAD ---
EXAM: XR Ribs Lt>=2 View W/PA CXR PROVIDED CLINICAL HISTORY: Chest pain COMPARISON: None FINDINGS: Cardiac and mediastinal silhouette is within normal limits. No focal consolidation, pleural fluid or pneumothorax apparent. No evidence for a displaced left-sided rib fracture. IMPRESSION: No evidence for an acute process.
== END 2020-04-02 14:45 | disposition home or self-care (01) ==
LOC: BICRAD 14:44
PROVIDERS: ATTEND Family Medicine
DX: R07.81 Pleurodynia (principal)

== ENCOUNTER 2021-05-30 07:48 | Outpatient (CLI) | payer BC | END 2021-05-30 07:49 | disposition home or self-care (01) | LOC: BICMAMMO 07:48 | PROVIDERS: ATTEND Family Medicine | DX: Z12.31 Encounter for screening mammogram for malignant neoplasm of breast (principal); Z80.3 Family history of malignant neoplasm of breast | CPT/HCPCS: 77063; 77067 ==

== ENCOUNTER 2022-09-16 09:09 | Outpatient (CLI) | payer BC | END 2022-09-16 09:10 | disposition home or self-care (01) | LOC: BICMAMMO 09:09 | PROVIDERS: ATTEND Family Medicine | DX: Z12.31 Encounter for screening mammogram for malignant neoplasm of breast (principal) | CPT/HCPCS: 77063; 77067 ==

== ENCOUNTER 2023-02-18 14:51 | Emergency (ER) | payer BC | END 2023-02-18 16:38 | disposition home or self-care (01) | LOC: ERS 14:51 | DX: M25.512 Pain in left shoulder (principal) ==